=== PATIENT | male | born 1970 | race Caucasian/White ===

== ENCOUNTER 2017-02-02 20:58 | Emergency (ER) | payer BC ==
[~2017-02-02] VITALS: Ht 177.8 cm; Wt 107.9 kg
[2017-02-02 21:00] VITALS: TEMP 37.3; Ht 177.8 cm; Wt 107.9 kg
[2017-02-02 21:16] VITALS: O2SAT 95
[2017-02-02] MEDS ORDERED: ASPIRIN 81 MG CHEW PO STA (21:44)
--- NOTE | 2017-02-02 21:45 | EMERGENCY ROOM VISIT NOTE ---
History Report prepared by Rufusibnoy: Júnior Sethi Under the Supervision of: Dr. Riky Maldonado D.O. First contact with patient: 21:32 Chief Complaint: CHEST PAIN Stated Complaint: CHEST & LF ARM PAIN Nursing Triage Summary: c/o epigastric pain for weeks. over the last 3 days developed pain across his chest down left arm. painfree at preasent. took 2 regular strength asa this am and antacid which helped. History of Present Illness The patient is a 46 year old male who presents to the Emergency Room with complaints of persistent chest pain for the past three days. The pain is described as severe heart burn. The chest pain is always accompanied with left arm pain. The pain was worse with exertion, including walking. The pain improves with time, but has also been taking baking soda and antacids which help. The patient had 2 regular strength aspirins [employer]. He denies nausea but has had some sweating. The patient has a history of slight hypertension and hyperlipidemia. Source of History: patient Onset: three days ago Position: chest Symptom Intensity: severe Quality: burning Timing: other (persistent) Modifying Factors (Worsening): exertion Associated Symptoms: + diaphoresis, No nausea Review of Systems See HPI for pertinent positives and negatives. A total of ten systems were reviewed and were otherwise negative. Past Medical & Surgical Medical Problems: (1) HLD (hyperlipidemia) (2) HTN (hypertension) Family History FH: heart disease Hypertension Social History Housing Status: lives with family Current/Historical Medications Scheduled Aluminum/Magnesium/Simeth (Maalox Max Susp), 30 ML PO PRN UD Aspirin (Aspirin Ec), 650 MG PO PRN Allergies Coded Allergies: No Known Allergies (Unverified , 07/13/11) Physical Exam Vital Signs Date Time Temp Pulse Resp B/P Pulse Ox O2 Delivery O2 Flow Rate FiO2 02/02/17 22:46 75 18 131/76 94 Room Air 02/02/17 21:20 96 18 162/98 95 02/02/17 21:16 95 Room Air 02/02/17 21:16 95 Room Air 02/02/17 21:13 93 02/02/17 21:00 37.3 97 22 176/104 97 Room Air Physical Exam GENERAL: Awake, alert, well-appearing, in no distress HENT: Normocephalic, atraumatic. Oropharynx unremarkable. EYES: Normal conjunctiva. Sclera non-icteric. NECK: Supple. No nuchal rigidity. FROM. No JVD. RESPIRATORY: Clear to auscultation. CARDIAC: Regular rate, normal rhythm. Extremities warm and well perfused. Pulses equal. ABDOMEN: Soft, non-distended. No tenderness to palpation. No rebound or guarding. No masses. RECTAL: Deferred. MUSCULOSKELETAL: Chest examination reveals no tenderness. The back is symmetrical on inspection without obvious abnormality. There is no CVA tenderness to palpation. No joint edema. LOWER EXTREMITIES: Calves are equal size bilaterally and non-tender. No edema. No discoloration. NEURO: Normal sensorium. No sensory or motor deficits noted. SKIN: No rash or jaundice noted. Medical Decision & Procedures ER Provider Diagnostic Interpretation: X-ray: Per my interpretation, radiologist review. CHEST ONE VIEW PORTABLE CLINICAL HISTORY: Chest pain. COMPARISON STUDY: No previous studies for comparison. FINDINGS: Lung volumes are at the lower limits of normal. No pneumothorax is present. There is no evidence of pulmonary edema. Borderline cardiomegaly is noted. Mediastinal contours are otherwise unremarkable. No consolidation is identified. There are possible trace bilateral pleural effusions. IMPRESSION: 1. Possible trace bilateral pleural effusions. 2. Borderline cardiomegaly. Electronically signed by: Manjit Mora M.D. 02/02/2017 10:06 PM Dictated Date/Time: 02/02/2017 10:05 PM Laboratory Results 02/02/17 21:14 Red Blood Count 5.03, Mean Corpuscular Volume 93.6, Mean Corpuscular Hemoglobin 32.0, Mean Corpuscular Hemoglobin Concent 34.2, Mean Platelet Volume 11.3, Neutrophils (%) (Auto) 61.1, Lymphocytes (%) (Auto) 26.2, Monocytes (%) (Auto) 8.9, Eosinophils (%) (Auto) 3.0, Basophils (%) (Auto) 0.6, Neutrophils # (Auto) 5.31, Lymphocytes # (Auto) 2.28, Monocytes # (Auto) 0.77, Eosinophils # (Auto) 0.26, Basophils # (Auto) 0.05 02/02/17 21:14 Test 02/02/17 21:14 02/02/17 23:20 White Blood Count 8.69 K/uL (4.8-10.8) Red Blood Count 5.03 M/uL (4.7-6.1) Hemoglobin 16.1 g/dL (14.0-18.0) Hematocrit 47.1 % (42-52) Mean Corpuscular Volume 93.6 fL (80-100) Mean Corpuscular Hemoglobin 32.0 pg (25-34) Mean Corpuscular Hemoglobin Concent 34.2 g/dl (32-36) Platelet Count 243 K/uL (130-400) Mean Platelet Volume 11.3 fL (7.4-10.4) Neutrophils (%) (Auto) 61.1 % Lymphocytes (%) (Auto) 26.2 % Monocytes (%) (Auto) 8.9 % Eosinophils (%) (Auto) 3.0 % Basophils (%) (Auto) 0.6 % Neutrophils # (Auto) 5.31 K/uL (1.4-6.5) Lymphocytes # (Auto) 2.28 K/uL (1.2-3.4) Monocytes # (Auto) 0.77 K/uL (0.11-0.59) Eosinophils # (Auto) 0.26 K/uL (0-0.5) Basophils # (Auto) 0.05 K/uL (0-0.2) RDW Standard Deviation 45.4 fL (36.4-46.3) RDW Coefficient of Variation 13.2 % (11.5-14.5) Immature Granulocyte % (Auto) 0.2 % Immature Granulocyte # (Auto) 0.02 K/uL (0.00-0.02) Anion Gap 10.0 mmol/L (3-11) Est Creatinine Clear Calc Drug Dose 101.0 ml/min Estimated GFR () 91.5 Estimated GFR (Non- 79.0 BUN/Creatinine Ratio 13.9 (10-20) Calcium Level 9.3 mg/dl (8.5-10.1) Total Bilirubin 0.4 mg/dl (0.2-1) Direct Bilirubin < 0.1 mg/dl (0-0.2) Aspartate Amino Transf (AST/SGOT) 31 U/L (15-37) Alanine Aminotransferase (ALT/SGPT) 43 U/L (12-78) Alkaline Phosphatase 83 U/L (45-117) Total Protein 7.6 gm/dl (6.4-8.2) Albumin 3.9 gm/dl (3.4-5.0) Bedside Troponin I 0.000 ng/ml (0-0.045) Laboratory results reviewed by me Medications Administered Medications (Trade) Dose Ordered Sig/Idania Route Start Time Stop Time Status Last Admin Dose Admin Aspirin (Aspirin Chew) 324 mg NOW STAT PO 02/02/17 21:44 02/02/17 21:47 DC 02/02/17 21:55 324 MG ECG Indication: chest pain Rate (beats per minute): 93 Rhythm: normal sinus Findings: left axis deviation, other (LVH) ED Course 2134: The patient was evaluated in room C3. A complete history and physical exam was performed. 2143: Aspirin 324 mg PO. 2347: Reassessed the patient. Discussed the workup with him. He is feeling better and currently has no pain. Medical Decision Differential diagnosis includes angina, unstable angina, acute [place], acute coronary syndrome, GERD, reflux. Patient on repeat examination is resting in no distress no current chest pain no cardiac dysrhythmia. Vital signs are normal. Patient has 2 negative troponins. Patient does have a concern for exercise intolerance. He may be experiencing angina and he needs strict follow-up. I recommended that he takes a 81 mg aspirin daily he is going to follow up with his primary care physician tomorrow and schedule an outpatient stress test. He understands to return for increased pain or for any concerns Impression Primary Impression: Acute chest pain Scribe Attestation The scribe's documentation has been prepared under my direction and personally reviewed by me in its entirety. I confirm that the note above accurately reflects all work, treatment, procedures, and medical decision making performed by me. Departure Information Dispostion Home / Self-Care Referrals Lexis Velasquez D.O. (PCP) Forms HOME CARE DOCUMENTATION FORM, IMPORTANT VISIT INFORMATION Patient Instructions Chest Pain - [facility], [facility] Additional Instructions Patient was instructed to take aspirin daily. Patient will be seen for outpatient stress testing
[2017-02-02 21:58] LABS: BASO % 0.6 %; BASO ABS # 0.05 K/uL (0-0.2); COMPLETE YES; HEMATOCRIT 47.1 % (42-52); IG% 0.2 %; LYMPH % 26.2 %; LYMPH ABS # 2.28 K/uL (1.2-3.4); MEAN CELL VOLUME 93.6 fL (80-100); MEAN CORPUSCULAR HGB CONC 34.2 g/dl (32-36); MEAN PLATELET VOLUME 11.3 fL (7.4-10.4); MONO % 8.9 %; NEUT % 61.1 %; PLATELET COUNT 243 K/uL (130-400); RED BLOOD COUNT 5.03 M/uL (4.7-6.1); WHITE BLOOD COUNT 8.69 K/uL (4.8-10.8)
--- NOTE | 2017-02-02 22:08 | DIAGNOSTIC IMAGING REPORT ---
CHEST ONE VIEW PORTABLE CLINICAL HISTORY: Chest pain. COMPARISON STUDY: No previous studies for comparison. FINDINGS: Lung volumes are at the lower limits of normal. No pneumothorax is present. There is no evidence of pulmonary edema. Borderline cardiomegaly is noted. Mediastinal contours are otherwise unremarkable. No consolidation is identified. There are possible trace bilateral pleural effusions. IMPRESSION: 1. Possible trace bilateral pleural effusions. 2. Borderline cardiomegaly. Electronically signed by: Manjit Mora M.D. 02/02/2017 10:06 PM Dictated Date/Time: 02/02/2017 10:05 PM
[2017-02-02] MEDS ORDERED: ALUMSUS2 PO (22:16)
[2017-02-02] MEDS ORDERED: ASPI325T39 PO (22:16)
[2017-02-02 22:27] LABS: ALKALINE PHOSPHATASE 83 U/L (45-117); ALT/SGPT 43 U/L (12-78); AST/SGOT 31 U/L (15-37); BLOOD UREA NITROGEN 15 mg/dl (7-18); BUN/CREATININE RATIO 13.9 (10-20); CARBON DIOXIDE 31 mmol/L (21-32); CHLORIDE 106 mmol/L (98-107); GLUCOSE 121 mg/dl (70-99); SODIUM 145 mmol/L (136-145)
[2017-02-02 22:35] LABS: CALCIUM 9.3 mg/dl (8.5-10.1)
[2017-02-03 00:14] VITALS: BP 128/82; PULSE 79; O2SAT 98
[2017-02-04] MEDS ORDERED: ASPI-435 PO (19:40)
[2017-02-06] MEDS ORDERED: LSN5 PO (10:41)
[2017-02-06] MEDS ORDERED: ATOR-26 PO (10:41)
[2017-02-06] MEDS ORDERED: ASPI-435 PO (10:41)
[2017-02-06] MEDS ORDERED: PLV75 PO (10:41)
[2017-02-06] MEDS ORDERED: NTRGSL4 SL (10:41)
[2017-02-06] MEDS ORDERED: TPRSR25 PO (10:41)
== END 2017-02-03 00:16 | disposition home or self-care (01) ==
LOC: C.EDB 20:58 → C.EDC 02-03 00:16
DX: R07.9 Chest pain, unspecified (principal); I10 Essential (primary) hypertension; Z82.49 Family history of ischemic heart disease and other diseases of the circulatory system